=== PATIENT | female | born 1970 | race Caucasian/White ===

== ENCOUNTER 2024-09-17 07:59 | Emergency (ER) | payer SELFPAY ==
[2024-09-17] VITALS (7 sets, daily range): BP systolic 120–181; BP diastolic 75–109; PULSE 98; O2SAT 96; BMI 25.1
--- NOTE | 2024-09-17 08:45 | EDRN ---
Radha Francisco PA in room w/ pt at this time.
--- NOTE | 2024-09-17 08:54 | ED.GENMED ---
History of Present Illness
General
Chief Complaint: Dizziness
Time Seen by Provider: 09/17/24 08:41
History of Present Illness
History of Present Illness:
54-year-old female presents to the emergency department for evaluation of persistent positional dizziness ongoing for the past 2 months. Began after a bout of what she describes as 'the stomach flu' with vomiting for several days. She is
reportedly had to eat while lying on her right side due to profound dizziness and nausea. No headaches or vision changes. Does also report occasional pulsatile tinnitus and hearing loss of the left ear.
Past History
Past History
ED Past Medical History: None
ED Past Surgical History: Gynecological (Tubal ligation )
Social History
Tobacco: Non-smoker
Alcohol: Occasional
Drug: Marijuana
Personal: Single
Living: with family
Review of Systems
Review of Systems
Allergies reviewed?: Yes
All Other Systems: ROS reviewed and negative except as documented in HPI and ROS
Phy Exam
Physical Exam
Physical Exam:
GEN: Well appearing, NAD, WDWN
HEENT: Oral mucosa moist, no scleral icterus, no nasal congestion, TMs clear bilaterally with no erythema
Cardiac: Regular rate
Lung: No respiratory distress, no tachypnea
MSK: No gross deformity or injuries
Skin: Good color, no pallor or jaundice, no rashes
Neuro: AO x3; CN II-XII grossly intact. BUE strength 5/5 in all fry, sensation intact and symmetric. BLE strength 5/5 in all fry, sensation intact and symmetric
Psych: Calm, cooperative
Course
Orders/Labs/Results
Orders:
Orders
09/17/24 08:04
Electrocardiogram (*1) Urgent
Reason for Study: Vertigo / Dizzy
EKG- Treatment ONCE
09/17/24 08:54
Pt Eval And Treat Urgent
Treatment: vestibular L ear
Activity Level: As Tolerated
09/17/24 09:54
Complete Blood Count/With Diff Urgent
Comprehensive Metabolic Panel Urgent
09/17/24 10:42
CT Head W/o Iv Contrast Urgent
Comment:
Reason For Exam: dizziness
Abnormal Lab Results
09/17/24
09:54
RBC 4.17 L 10^6/uL
(4.20-5.40)
MPV 10.6 H fL
(7.4-10.4)
Immature Gran % 0.6 H %
(0-0.5)
BUN 18 H mg/dl
(7-17)
Total Bilirubin 1.4 H mg/dl
(0.2-1.3)
09/17/24 09:54
09/17/24 09:54
Vital Signs
Initial and Last Documented VS:
Initial Vital Signs
Temp Pulse Resp BP Pulse Ox
97.7 F 104 16 181/109 98
09/17/24 08:01 09/17/24 08:01 09/17/24 08:01 09/17/24 08:01 09/17/24 08:01
Last Documented Vital Signs
Temp Pulse Resp BP Pulse Ox
97.7 F 86 16 124/76 97
09/17/24 08:01 09/17/24 12:30 09/17/24 12:30 09/17/24 12:00 09/17/24 12:30
MDM/Problems Addressed
MDM/Problems Addressed:
Patient's dizziness is most likely the basis of her diffuse sinus disease noted on head CT. Labs are unremarkable. Her blood pressure did improve in the ED without treatment. She just completed a course of Augmentin for dental problem 2 days ago
thus I do not see any indication for additional antibiotics at this time rather we will treat with a course of steroids. Recommend outpatient primary care follow-up
*Critical Care Note
Total Time (30-74mins, 75-104mins- exclusive of procedures): Not Applicable
ED Attending Note
-
Portions of this chart may have been created with voice recognition software.� Occasional wrong word or��sound alike� substitutions may have occurred due to the inherent limitations of voice recognition software.
Discharge Plan
Departure
Patient Disposition: Home (Routine Discharge)
Date of Disposition: 09/17/24
Time of Disposition: 12:18
Patient with high blood pressure during this ER visit?: No
Discharge Problem:
Dizziness, Sinusitis
Instructions: Dizziness, Nonvertigo, (DC)
Prescriptions:
New
prednisone 20 mg tablet
40 mg PO DAILY 7 Days Qty: 14 0RF
No Action
oxycodone 5 mg tablet
5 mg PO Q4H PRN (Reason: Pain) Qty: 14 0RF
Referrals:
NONE,* [Family Provider] -
Stand Alone Forms: Return to Work
Activity Restrictions/Additional Instructions:
Follow-up with your primary care physician after completion of steroids to discuss whether blood pressure medicine may be beneficial
Interventions
Interventions:
*Risk Screen - Suicide Last Done: 09/17/24 08:01
*General Assessment Last Done: 09/17/24 09:50
*Neglect/Abuse Screening Last Done: 09/17/24 08:01
ED- Fall Risk Assessment Last Done: 09/17/24 09:50
*ED COVID-19 Vaccine History Last Done: 09/17/24 09:50
*Nursing Disposition Last Done: 09/17/24 12:45
ED- Neurological Assessment Last Done: 09/17/24 09:50
ED- Cardiac Assessment Last Done: 09/17/24 09:50
ED Swallowing Screen Last Done: 09/17/24 09:50
Discharge Date and Time
Discharge Date/Time: 09/17/24 12:45
Print Language: POLISH
--- NOTE | 2024-09-17 09:09 | EDRN ---
Physical therapist in room w/ pt at this time.
[2024-09-17 10:17] LABS: % Basophils 0.3 % (0-2); % Eosinophils 2.2 % (0-6); % Immature Granulocytes 0.6 % (0-0.5); % Lymphocytes 28.5 % (20.5-51.1); % Monocytes 4.9 % (1.7-9.3); % Neutrophils 63.5 % (42.2-75.2); ALT (SGPT) 27 U/L (0-35); AST (SGOT) 26 U/L (14-36); Absolute Eosinophils 0.2 10^3/uL (0-0.7); Absolute Monocytes 0.4 10^3/uL (0.1-0.6); Absolute Neutrophils 4.5 10^3/uL (1.4-6.5); Albumin 4.8 g/dl (3.5-5.0); Alkaline Phosphatase 80 U/L (38-126); Blood Urea Nitrogen 18 mg/dl (7-17); Calcium 9.5 mg/dl (8.4-10.2); Carbon Dioxide 23 mmol/L (22-30); Chloride 103 mmol/L (98-107); Glucose 96 mg/dl (70-99); Hematocrit 37.7 % (37.0-47.0); Hemoglobin 12.8 g/dL (12.0-16.0); Mean Corpuscular Hgb 30.7 pg (27.0-31.0); Mean Corpuscular Volume 90.4 fL (81.0-99.0); Mean Platelet Volume 10.6 fL (7.4-10.4); Nucleated Red Blood Cells % 0 %; Platelet Count 288 10^3/uL (130-400); Potassium 4.4 mmol/L (3.5-5.1); Red Blood Cell Count 4.17 10^6/uL (4.20-5.40); Red Cell Dist. Width 12.8 % (11.5-14.5); Sodium 137 mmol/L (135-145); Total Bilirubin 1.4 mg/dl (0.2-1.3); Total Protein 7.8 g/dl (6.3-8.2); White Blood Cell Count 7.1 10^3/uL (4.8-10.8); eGFR > 60.00
== END 2024-09-17 12:45 | disposition home or self-care (01) ==
LOC: EMR 07:59
PROVIDERS: Physician Assistant; EMERGENCY PHYSICIAN Student in an Organized Health Care Education/Training Program
DX: R42 Dizziness and giddiness (principal); J32.9 Chronic sinusitis, unspecified
CPT/HCPCS: 99283; 70450; 80053; 85025; 93005